=== PATIENT | female | born 1950 | race African-American/Black ===

== ENCOUNTER 2018-12-02 11:38 | Day surgery (SDC) | payer MEDICARE ==
[~2018-12-02 11:38] MED LIST: ACETAMINOPHEN 1,000 MG/100 ML BTL IVPB ONE; CEFAZOLIN 2 Gram 2 GM/50 ML BAG IVPB ONE
[2018-12-02] MEDS ORDERED: MIDAZOLAM HCL 2MG/2ML VIAL IV ONE (11:39)
[2018-12-02] MEDS ORDERED: FENTANYL PF 100MCG/2ML VIAL IV ONE (11:39)
[2018-12-02] MEDS ORDERED: SEVOFLURANE 250 ML INH ONE (11:39)
[2018-12-02] MEDS ORDERED: PROPOFOL 10 MG/ML VIAL IV ONE (11:39)
[2018-12-02] MEDS ORDERED: ONDANSETRON HCL IV 4 MG/2 ML VIAL IVP ONE (11:39)
[2018-12-02] MEDS ORDERED: GLYCOPYRROLATE 0.2 MG/ML ML IV ONE (11:39)
[2018-12-02 11:53] LABS: ABSOLUTE NEUTROPHIL COUNT 4.51; BASO % 0.6 % (0-6); EOS % 1.3 % (0-6); GRAN % 57.2 % (47-80); HEMATOCRIT 42.7 % (35.0-47.0); HEMOGLOBIN 13.4 gm/dl (11.6-16.0); LYMPH % 34.1 % (16-45); MEAN CELL VOLUME 86.8 fl (81-97); MEAN CORPUSCULAR HEMOGLOBIN 27.2 pg (27-33); MEAN CORPUSCULAR HGB CONC 31.4 g/dl (32-36); MEAN PLATELET VOLUME 9.4 fl (7.4-10.4); MONO % 6.8 % (0-9); PLATELET COUNT 382 K/uL (130-400); RED BLOOD COUNT 4.92 M/uL (3.80-5.40); RED CELL DISTRIBUTION WIDTH 13.5 % (11.5-14.5); WHITE BLOOD COUNT W/O DIFF 7.9 K/uL (4.2-12.2)
[2018-12-02 12:08] LABS: BLOOD UREA NITROGEN 20 mg/dL (8-23); CREATININE 0.8 mg/dL (0.5-0.9); EST GLOMERULAR FILTRATION RATE > 60 mL/min; GLUCOSE,RANDOM 123 mg/dL (74-109)
[2018-12-02] MEDS ORDERED: RINGERS SOLUTION,LACTATED 1,000 ML IV ONE (12:41)
[2018-12-02] MEDS ORDERED: MORPHINE SULFATE 10MG/1ML **1ML VIAL IU ONE ×2 (13:41→13:50)
[2018-12-02] MEDS ORDERED: METHYLPREDNISOLONE 40MG/VIAL IU ONE ×2 (13:41→13:50)
[2018-12-02] MEDS ORDERED: BUPIVACAINE 0.5% W/EPI MPF 30 ML VIAL SQ ONE (13:41)
[2018-12-02] MEDS ORDERED: HYDROCODONE/APAP 7.5/325MG TABLET PO ONE (14:37)
--- NOTE | 2018-12-04 08:10 | Operative Note ---
DATE OF SURGERY: 12/02/2018 PREOPERATIVE DIAGNOSIS: Internal derangement of the right knee. POSTOPERATIVE DIAGNOSES: 1. Grade 3 chondromalacia patella. 2. Small fiber cartilage in the notch. 3. Complex split radial tear involving the posterior horn of the medial meniscus. 4. Grade 3 chondromalacia of the medial femoral condyle. 5. Complex degenerative tear involving the anterior horn and lateral horn of lateral meniscus. 6. Grade 3 chondromalacia of lateral femoral condyle. 7. Moderate synovitis of the pouch. OPERATION: 1. Right knee arthroscopy with partial medial and lateral meniscectomies. 2. Right knee arthroscopy with limited synovectomy. 3. Right knee arthroscopy with chondroplasty of all 3 compartments. STAFF SURGEON: Hudson Rogers MD ANESTHESIA: General. PREPARATION: Chloraprep. INDIVIDUAL CONSIDERATIONS: None. PROCEDURE: The patient was taken to the operating room and placed supine on the operating room table. The patient had a successful induction of a general anesthetic. The right lower extremity was prepped and draped in the usual fashion. The patient had a superolateral inflow cannula placed. Skin was infiltrated with 0.5% Marcaine with epinephrine prior. A large clear effusion was drained. The knee was inflated with normal saline. An inferomedial and an inferolateral portal were made in a similar fashion. The arthroscope was introduced through the inferolateral portal up into the pouch. Patellofemoral compartment showed grade 3 change throughout the patella, and this was smoothed with a shaver. Floating debris was seen in both gutters, which were irrigated out. There was moderate synovitis of the pouch. This was debrided with a shaver. The notch had some fiber cartilage medially. She had an obvious complex split radial tear involving the posterior horn of the medial meniscus. Most of this was debrided out with basket forceps and a shaver. There was grade 3 change in the femoral condyle from 45 to 90 which was smoothed with a shaver. Tibial plateau looked good. In the notch, the cruciates were normal laterally. Complex anterior horn tear of lateral meniscus was debrided with a shaver to a stable rim and small grade 3 chondromalacia centrally on the femoral condyle was removed with a shaver. The knee was then irrigated out with saline to remove loose floating debris. Portals were closed with clifford, and 20 mL of 0.5% Marcaine with epinephrine along with 4 mg of morphine and 40 mg of Depo-Medrol were injected into the knee. A sterile bulky compressive dressing was applied. The patient tolerated the procedure well. Needle and sponge counts were correct. Estimated blood loss was minimal. She was taken back to recovery in good condition. There were no complications. CARI
== END 2018-12-02 15:05 | disposition home or self-care (01) ==
LOC: SUR 11:38
PROVIDERS: ATTEND Orthopaedic Surgery
DX: S83.231A Complex tear of medial meniscus, current injury, right knee, initial encounter (principal); S83.271A Complex tear of lateral meniscus, current injury, right knee, initial encounter; M94.261 Chondromalacia, right knee; M65.9 Synovitis and tenosynovitis, unspecified; I10 Essential (primary) hypertension; E11.9 Type 2 diabetes mellitus without complications; E78.00 Pure hypercholesterolemia, unspecified
CPT/HCPCS: 29880; 29875; 01400; 85025; 80048; J2405; J3010; J0690; J2270; J1030; J7120